=== PATIENT | female | born 1990 | race Caucasian/White ===

== ENCOUNTER 2020-11-05 18:32 | Emergency (ER) | payer OTHER ==
[2020-11-05 18:51] VITALS: BP 130/90; PULSE 100; TEMP 98.8; BMI 19.5
[2020-11-05] MEDS ORDERED: ACETAMINOPHEN 325 MG TABLET (FP) PO ONE (19:40)
[2020-11-05] MEDS ORDERED: ACETAMINOPHEN 500 MG TABLET (FP) ONE (19:57)
== END 2020-11-05 22:10 | disposition home or self-care (01) ==
LOC: JERFT 18:32
DX: R51.9 Headache, unspecified (principal)
CPT/HCPCS: 70450-TC; 72070-TC-FY; 72100-TC-FY; 72125-TC; 99285-25